=== PATIENT | female | born 1990 | race Caucasian/White ===

== ENCOUNTER 2016-12-26 20:48 | Inpatient (IN) | payer MEDICAID ==
[~2016-12-26] VITALS: Ht 160 cm; Wt 67.9 kg
[2016-12-26] MEDS ORDERED: ONDANSETRON 2MG/ML, 2ML IVPush ONE (21:00)
[2016-12-26] MEDS ORDERED: LORazepam 2 MG/ML, 1ML IVPush ONE (21:00)
[2016-12-26] MEDS ORDERED: SODIUM CHLORIDE FLUSH 10ML SYR IVF ONE (21:00)
[2016-12-26] MEDS ORDERED: SODIUM CHLORIDE 0.9% 1,000ML IVBOLUS ONE ×2 (21:00→22:30)
[2016-12-26] MEDS ORDERED: LORazepam 2 MG/ML, 1ML ONE (21:01)
[2016-12-26] MEDS ORDERED: ONDANSETRON 2MG/ML, 2ML ONE ×2 (21:02→23:20)
[2016-12-26 21:23] LABS: HEMOGLOBIN 13.1 g/dL (11.7-16.4)
[2016-12-26 21:35] LABS: ASPARTATE AMINO TRANSFERASE 7 U/L (15-37); BLOOD UREA NITROGEN 12 mg/dL (7-18)
[2016-12-26] MEDS ORDERED: OMNIPAQUE 350 MG/ML, 100ML BOTTLE ONE (22:08)
[2016-12-26] MEDS ORDERED: METRONIDAZOLE PMX 500MG/100ML 100 ML IVPB ONE (22:30)
[2016-12-26] MEDS ORDERED: CEFOTETAN PMX 1GM/50ML 50 ML IVPB ONE (22:30)
[2016-12-26] MEDS ORDERED: HYDROmorphone 1 MG/ML, 1ML IVPush PRN (22:30)
[2016-12-26] MEDS ORDERED: CEFOTETAN PMX 1GM/50ML 50 ML ONE (22:38)
[2016-12-26] MEDS ORDERED: MIDAZOLAM 1 MG/ML, 2ML ONE (23:06)
[2016-12-26] MEDS ORDERED: FENTANYL PF 250 MCG/5ML ONE ×2 (23:06→23:42)
[2016-12-26] MEDS ORDERED: VASOPRESSIN 20 UNIT/ML, 1ML ONE (23:09)
[2016-12-26] MEDS ORDERED: NOREPINEPHRINE 1 MG/ML, 4ML ONE (23:09)
[2016-12-26] MEDS ORDERED: ROCURONIUM 10 MG/ML ONE (23:20)
[2016-12-26] MEDS ORDERED: SUCCINYLCHOLINE 20 MG/ML, 10ML ONE (23:20)
[2016-12-26] MEDS ORDERED: GLYCOPYRROLATE 0.2MG/1ML ONE (23:20)
[2016-12-26] MEDS ORDERED: PROPOFOL 10 MG/ML, 20ML ONE (23:20)
[2016-12-26] MEDS ORDERED: NEOSTIGMINE 1 MG/ML, 10ML ONE (23:20)
[2016-12-27] MEDS ORDERED: BUPIVACAINE/PF 0.5% ONE (00:04)
[2016-12-27] MEDS ORDERED: ROPIvacaine/PF 0.5%, 30 ML ONE (00:09)
[2016-12-27] MEDS ORDERED: FENTANYL PF 100 MCG/2ML ONE (00:21)
[2016-12-27] MEDS ORDERED: HYDROmorphone 2 MG/ML, 1ML ONE (00:21)
[2016-12-27] MEDS ORDERED: HYDROmorphone PCA 30 MG/30 ML ONE (00:21)
[2016-12-27] MEDS: FENTANYL PF 100 MCG/2ML IV PRN ×2 (01:05→01:13)
[2016-12-27] MEDS ORDERED: HYDROmorphone 1 MG/ML, 1ML IV PRN ×2 (01:30→02:30)
[2016-12-27] MEDS ORDERED: HYDROmorphone PCA 30 MG/30 ML IV PRN (01:30)
[2016-12-27] MEDS ORDERED: ONDANSETRON 2MG/ML, 2ML IVPush PRN (01:30)
[2016-12-27] MEDS ORDERED: LABETALOL 5MG/ML, 20ML IV PRN (01:30)
[2016-12-27] MEDS ORDERED: hydrALAzine 20 MG/ML, 1ML IV PRN (01:30)
[2016-12-27 01:50] VITALS: BP 131/94
[2016-12-27 02:00] VITALS: BP 131/89
[2016-12-27] MEDS ORDERED: DIPHENHYDRAMINE 25 MG CAPSULE PO PRN (02:30)
[2016-12-27] MEDS ORDERED: ACETAMINOPHEN 650 MG SUPP PR PRN (02:30)
[2016-12-27] MEDS ORDERED: DO NOT STOP ANTIBIOTICS AFTER 24HRS MC SCH (02:30)
[2016-12-27] MEDS ORDERED: ACETAMINOPHEN 325 MG TABLET PO PRN (02:30)
[2016-12-27] MEDS ORDERED: ONDANSETRON 2MG/ML, 2ML IV PRN (02:30)
[2016-12-27] MEDS: KETOROLAC 30 MG/1 ML IV SCH ×4 (03:30→21:46)
[2016-12-27] MEDS: CEFOTETAN PMX 1GM/50ML 50 ML IVPB SCH ×2 (03:30→14:48)
[2016-12-27] MEDS: LACTATED RINGERS 1,000 ML IV SCH ×3 (03:30→21:46)
[2016-12-27] MEDS: LORazepam 2 MG/ML, 1ML IV PRN (03:47)
[2016-12-27 05:59] LABS: HEMOGLOBIN 11.4 g/dL (11.7-16.4)
[2016-12-27 06:12] LABS: BLOOD UREA NITROGEN 9 mg/dL (7-18)
[2016-12-27 07:15] VITALS: BP 116/70
[2016-12-27] MEDS: ENOXAPARIN 40 MG/0.4 ML SQ SCH (08:09)
[2016-12-27] MEDS: PANTOPRAZOLE 40 MG IV IVPush SCH (08:42)
[2016-12-27] MEDS: DIPHENHYDRAMINE 50 MG/ML, 1ML IV PRN (10:29)
[2016-12-27 12:22] VITALS: BP 114/65
[2016-12-27] MEDS: NICOTINE 21 MG/24 HR PATCH.TD24 TD SCH (15:45)
[2016-12-27 18:56] VITALS: BP 125/79
[2016-12-28] MEDS: CEFOTETAN PMX 1GM/50ML 50 ML IVPB SCH ×2 (02:31→14:31)
[2016-12-28 02:58] VITALS: BP 127/82
[2016-12-28] MEDS: KETOROLAC 30 MG/1 ML IV SCH ×4 (03:36→21:47)
[2016-12-28] MEDS: LORazepam 2 MG/ML, 1ML IV PRN ×2 (04:49→16:40)
[2016-12-28 05:21] LABS: HEMOGLOBIN 10.3 g/dL (11.7-16.4)
[2016-12-28 05:26] LABS: BLOOD UREA NITROGEN 14 mg/dL (7-18)
[2016-12-28 05:30] LABS: ASPARTATE AMINO TRANSFERASE 15 U/L (15-37)
[2016-12-28 07:07] VITALS: BP 116/70
[2016-12-28] MEDS: LACTATED RINGERS 1,000 ML IV SCH (07:37)
[2016-12-28] MEDS: PANTOPRAZOLE 40 MG IV IVPush SCH (08:15)
[2016-12-28] MEDS: ENOXAPARIN 40 MG/0.4 ML SQ SCH (08:15)
[2016-12-28] MEDS ORDERED: NS + 20MEQ KCL 1,000 ML IV SCH (09:00)
[2016-12-28 13:27] VITALS: BP 121/57
[2016-12-28] MEDS: NICOTINE 21 MG/24 HR PATCH.TD24 TD SCH (15:15)
[2016-12-28 19:38] VITALS: BP 119/77
[2016-12-28] MEDS: DIPHENHYDRAMINE 50 MG/ML, 1ML IV PRN (20:22)
[2016-12-29] MEDS ORDERED: NS + 40MEQ KCL 1,000 ML IV SCH (02:30)
[2016-12-29] MEDS: KETOROLAC 30 MG/1 ML IV SCH ×4 (02:55→22:15)
[2016-12-29] MEDS: CEFOTETAN PMX 1GM/50ML 50 ML IVPB SCH ×2 (02:55→14:30)
[2016-12-29 03:31] VITALS: BP 128/85
[2016-12-29 06:23] LABS: HEMOGLOBIN 9.8 g/dL (11.7-16.4)
[2016-12-29 06:34] LABS: BLOOD UREA NITROGEN 14 mg/dL (7-18)
[2016-12-29 08:00] VITALS: BP 111/67
[2016-12-29] MEDS ORDERED: OMNIPAQUE 350 MG/ML, 150 ML BOTTLE ONE (09:58)
[2016-12-29] MEDS: ENOXAPARIN 40 MG/0.4 ML SQ SCH (10:42)
[2016-12-29] MEDS: PANTOPRAZOLE 40 MG IV IVPush SCH (10:42)
[2016-12-29 14:00] VITALS: BP 127/78
[2016-12-29] MEDS: OXYcodone/APAP 10/325MG TABLET PO PRN ×2 (14:38→18:51)
[2016-12-29] MEDS: NICOTINE 21 MG/24 HR PATCH.TD24 TD SCH (14:50)
[2016-12-29] MEDS: LORazepam 1MG TABLET PO PRN (16:02)
[2016-12-29 19:13] VITALS: BP 120/78
[2016-12-29] MEDS: SODIUM CHLORIDE FLUSH 3ML SYRINGE IVF SCH (22:15)
[2016-12-30 02:24] VITALS: BP 122/84
[2016-12-30] MEDS: CEFOTETAN PMX 1GM/50ML 50 ML IVPB SCH (02:30)
[2016-12-30] MEDS: OXYcodone/APAP 10/325MG TABLET PO PRN ×3 (02:41→12:34)
[2016-12-30] MEDS: LORazepam 1MG TABLET PO PRN ×2 (02:41→10:48)
[2016-12-30] MEDS: ENOXAPARIN 40 MG/0.4 ML SQ SCH (08:07)
[2016-12-30] MEDS ORDERED: PANTOPROZOLE 40MG TABLET PO SCH (08:14)
[2016-12-30 08:30] VITALS: BP 127/84
[2016-12-30] MEDS: SODIUM CHLORIDE FLUSH 3ML SYRINGE IVF SCH (09:00)
[2016-12-30 11:00] VITALS: BP 116/80
[2016-12-30] MEDS ORDERED: OXYC1TAB7 PO (11:36)
[2016-12-30] MEDS ORDERED: POLY17PO5 PO (11:38)
[2016-12-30] MEDS ORDERED: PANT40TA3 PO (11:40)
[2016-12-30] MEDS ORDERED: NICO1PAT5 TD (11:41)
[2016-12-30] MEDS ORDERED: OXYC1TAB9 PO (13:03)
== END 2016-12-30 12:36 | disposition home or self-care (01) | DRG 331 ==
LOC: OR 22:29 → EDIP 22:30 → OR 22:37 → 4NOR 12-27 01:41 → DCLOUNGE 12-30 11:25
PROVIDERS: ADMIT Colon & Rectal Surgery; ATTEND Colon & Rectal Surgery
PROC: 0T9B70Z Drainage of Bladder with Drainage Device, Via Natural or Artificial Opening (ICD-10-PCS; 2016-12-26)
PROC: 0DU907Z Supplement Duodenum with Autologous Tissue Substitute, Open Approach (ICD-10-PCS; principal; 2016-12-26 22:30)
DX: K25.5 Chronic or unspecified gastric ulcer with perforation (principal); F17.200 Nicotine dependence, unspecified, uncomplicated; F41.1 Generalized anxiety disorder; Z87.19 Personal history of other diseases of the digestive system
CPT/HCPCS: 36415; 74177; 74241; 80048; 80053; 81003; 82040; 83690; 83735; 84703; 85025; 93005; 96361; 96365; 96375; C1729; J1170; J1650; J1885; J2250; J2405; J2704; J2710; J2795; J3010; J3480; J3490; Q9967; C1765; C9113; J0330; J1200; J2060; J7030; J7120; Q0163; S0074

== ENCOUNTER 2017-02-07 17:12 | Emergency (ER) | payer SELFPAY ==
[~2017-02-07] VITALS: Ht 160 cm; Wt 52.8 kg
[~2017-02-07 17:12] MED LIST: NICO1PAT5 TD; OXYC1TAB7 PO; OXYC1TAB9 PO; PANT40TA3 PO; POLY17PO5 PO
[2017-02-07] MEDS ORDERED: SODIUM CHLORIDE 0.9% 1,000ML IVBOLUS ONE (18:30)
[2017-02-07] MEDS ORDERED: SODIUM CHLORIDE FLUSH 10ML SYR IVF ONE (18:30)
[2017-02-07] MEDS ORDERED: ONDANSETRON 2MG/ML, 2ML IVPush ONE ×2 (18:30→20:00)
[2017-02-07] MEDS ORDERED: ONDANSETRON 2MG/ML, 2ML ONE (19:04)
[2017-02-07 19:20] LABS: ASPARTATE AMINO TRANSFERASE 12 U/L (15-37); BLOOD UREA NITROGEN 10 mg/dL (7-18)
[2017-02-07] MEDS ORDERED: MORPHINE SULFATE 4 MG/ML, 1ML ONE (19:44)
[2017-02-07 20:00] VITALS: BP 141/96
[2017-02-07] MEDS ORDERED: MORPHINE SULFATE 4 MG/ML, 1ML IVPush PRN (20:00)
[2017-02-07] MEDS ORDERED: OXYcodone/APAP 5/325MG TABLET ONE (20:14)
[2017-02-07] MEDS ORDERED: ONDANSETRON ODT 4 MG ONE (20:15)
[2017-02-07] MEDS ORDERED: OXYcodone/APAP 5/325MG TABLET PO ONE (20:30)
[2017-02-07] MEDS ORDERED: ONDANSETRON ODT 4 MG PO ONE (20:30)
== END 2017-02-07 21:56 | disposition home or self-care (01) ==
LOC: ED 21:53
DX: S29.012A Strain of muscle and tendon of back wall of thorax, initial encounter (principal); K80.70 Calculus of gallbladder and bile duct without cholecystitis without obstruction; X58.XXXA Exposure to other specified factors, initial encounter; Y93.89 Activity, other specified; Y99.8 Other external cause status; Y92.89 Other specified places as the place of occurrence of the external cause
CPT/HCPCS: 36415; 72072; 76700; 80053; 80307; 81001; 83690; 84703; 85025; 85730; 87086; 93005; 99285; Q0162

== ENCOUNTER 2017-10-27 04:24 | Inpatient (IN) | payer MEDICAID ==
[2017-10-27] VITALS (12 sets, daily range): BP systolic 98–112; BP diastolic 64–72
[~2017-10-27] VITALS: Ht 160 cm; Wt 46.7 kg
[~2017-10-27 04:24] MED LIST changes: +NICO-487 TD; -NICO1PAT5 TD
[2017-10-27] MEDS ORDERED: SODIUM CHLORIDE 0.9% 1,000 ML IV ONE (04:43)
[2017-10-27] MEDS ORDERED: ONDANSETRON 2MG/ML, 2ML ONE (04:58)
[2017-10-27] MEDS ORDERED: MORPHINE SULFATE 4 MG/ML, 1ML ONE ×4 (04:58→08:08)
[2017-10-27] MEDS ORDERED: FAMOTIDINE 20 MG/2 ML ONE (04:58)
[2017-10-27] MEDS ORDERED: ONDANSETRON 2MG/ML, 2ML IVPush ONE (05:00)
[2017-10-27] MEDS ORDERED: SODIUM CHLORIDE 0.9% 1,000ML IVBOLUS ONE (05:00)
[2017-10-27] MEDS ORDERED: FAMOTIDINE 20 MG/2 ML IVP ONE (05:00)
[2017-10-27] MEDS: MORPHINE SULFATE 4 MG/ML, 1ML IVPush PRN ×4 (05:08→08:23)
[2017-10-27 05:26] LABS: ALANINE AMINOTRANSFERASE 16 U/L (12-78); ALBUMIN 2.1 g/dL (3.4-5.0); ANION GAP 10 mmol/L (5-15); CALCIUM 8.1 mg/dL (8.5-10.1); CHLORIDE 104 mmol/L (98-107); CREATININE 0.56 mg/dL (0.55-1.02)
[2017-10-27 05:29] LABS: MEAN CORPUSCULAR HEMOGLOBIN 24.8 pg (27.0-34.8); MEAN CORPUSCULAR HGB CONC 32.3 g/dL (32.4-35.8); MEAN CORPUSCULAR VOLUME 76.9 fL (80-100); MEAN PLATELET VOLUME 6.5 fL (7.4-10.4); PLATELET COUNT 529 x10^3/uL (130-400); RED BLOOD COUNT 2.49 x10^6/uL (3.82-5.3); RED CELL DISTRIBUTION WIDTH 15.5 % (9.6-15.2)
[2017-10-27 05:31] LABS: ALKALINE PHOSPHATASE 72 U/L (45-117); BILIRUBIN,TOTAL < 0.1 mg/dL (0.2-1.0); TOTAL PROTEIN 6.2 g/dL (6.4-8.2)
[2017-10-27 05:54] LABS: BASOPHILS # (AUTO) 0.05 x10^3/uL (0-0.1); BASOPHILS % (AUTO) 0 % (0-1); EOSINOPHILS # (AUTO) 0.05 x10^3/uL (0-0.4); EOSINOPHILS % (AUTO) 0 % (1-7); LYMPHOCYTES # (AUTO) 1.61 x10^3/uL (1-3.4); LYMPHOCYTES % (AUTO) 12 % (22-44); MD SCAN; MONOCYTES # (AUTO) 0.83 x10^3/uL (0.2-0.8); MONOCYTES % (AUTO) 6 % (2-9); NEUTROPHILS # (AUTO) 11.06 x10^3/uL (1.8-6.8); NEUTROPHILS % (AUTO) 81 % (42-75)
[2017-10-27] MEDS ORDERED: PANTOPRAZOLE 40 MG IV IVPush ONE (06:30)
[2017-10-27] MEDS ORDERED: PANTOPRAZOLE 40 MG IV ONE (06:36)
[2017-10-27] MEDS ORDERED: OMNIPAQUE 350 MG/ML, 75ML BOTTLE ONE (06:38)
[2017-10-27] MEDS ORDERED: PIPERACILLIN/TAZO/PMX 3.375GM 50 ML IV ONE (07:00)
[2017-10-27] MEDS ORDERED: HYDROmorphone 2 MG/ML, 1ML ONE (08:08)
[2017-10-27 08:29] LABS: MICROSCOPIC INDICATED
[2017-10-27] MEDS ORDERED: LABETALOL 5MG/ML, 20ML IVPush PRN (08:30)
[2017-10-27] MEDS ORDERED: ONDANSETRON ODT 4 MG PO PRN (08:30)
[2017-10-27] MEDS ORDERED: ENALAPRILAT 1.25 MG/ML, 2ML IVPush PRN (08:30)
[2017-10-27] MEDS ORDERED: DOCUSATE 100 MG CAPSULE PO PRN (08:30)
[2017-10-27] MEDS ORDERED: BISACODYL 10 MG SUPP PR PRN (08:30)
[2017-10-27] MEDS ORDERED: THIAMINE 100 MG, MVI ADULT 10 ML, FOLIC ACID 1 MG in D5%-0.9% NACL 1,000 ML IV SCH (08:30)
[2017-10-27] MEDS ORDERED: ACETAMINOPHEN 325 MG TABLET PO PRN (08:30)
[2017-10-27] MEDS ORDERED: ONDANSETRON 2MG/ML, 2ML IVPush PRN (08:30)
[2017-10-27] MEDS ORDERED: DIPHENHYDRAMINE 25 MG CAPSULE PO PRN (08:30)
[2017-10-27] MEDS ORDERED: morphine SULFATE 10 MG/ML, 1ML IVPush PRN (08:30)
[2017-10-27 08:39] LABS: CULTURE INDICATED? YES
[2017-10-27] MEDS ORDERED: HYDROmorphone 1 MG/ML, 1ML IV ONE (09:00)
[2017-10-27] MEDS: NICOTINE 7 MG/24 HR PATCH.TD24 TD SCH (09:49)
[2017-10-27] MEDS: MVI ADULT 10 ML, FOLIC ACID 1 MG in D5%-0.9% NACL 1,000 ML IV SCH (10:42)
[2017-10-27 10:43] LABS: AMPHETAMINE SCREEN, URINE Positive (Negative); BARBITURATE SCREEN, URINE Negative (Negative); BENZODIAZEPINE SCREEN, URINE Negative (Negative); CANNABINOID SCREEN, URINE Positive (Negative); COCAINE SCREEN, URINE Negative (Negative); METHADONE SCREEN, URINE Negative (Negative); OPIATE SCREEN, URINE Positive (Negative)
[2017-10-27] MEDS: LORazepam 1MG TABLET PO PRN ×2 (13:17→21:03)
[2017-10-27] MEDS: THIAMINE 100MG TABLET PO SCH (20:34)
[2017-10-28 02:20] VITALS: BP 113/79
[2017-10-28] MEDS: LORazepam 1MG TABLET PO PRN ×2 (06:41→16:44)
[2017-10-28 06:55] LABS: ALBUMIN 1.7 g/dL (3.4-5.0); ANION GAP 9 mmol/L (5-15); CALCIUM 7.5 mg/dL (8.5-10.1); CHLORIDE 109 mmol/L (98-107)
[2017-10-28 07:06] LABS: ALANINE AMINOTRANSFERASE 15 U/L (12-78); ALKALINE PHOSPHATASE 70 U/L (45-117); BILIRUBIN,TOTAL 0.2 mg/dL (0.2-1.0); CREATININE 0.53 mg/dL (0.55-1.02); THYROID STIMULATING HORMONE 0.587 mIU/L (0.358-3.740); TOTAL PROTEIN 5.3 g/dL (6.4-8.2)
[2017-10-28 07:18] VITALS: BP 123/82
[2017-10-28 07:28] LABS: BASOPHILS # (AUTO) 0.06 x10^3/uL (0-0.1); BASOPHILS % (AUTO) 1 % (0-1); EOSINOPHILS # (AUTO) 0.21 x10^3/uL (0-0.4); EOSINOPHILS % (AUTO) 2 % (1-7); LYMPHOCYTES # (AUTO) 3.18 x10^3/uL (1-3.4); LYMPHOCYTES % (AUTO) 32 % (22-44); MD MORPH REVIEW ONLY; MEAN CORPUSCULAR HEMOGLOBIN 26.1 pg (27.0-34.8); MEAN CORPUSCULAR HGB CONC 32.4 g/dL (32.4-35.8); MEAN CORPUSCULAR VOLUME 80.6 fL (80-100); MEAN PLATELET VOLUME 6.2 fL (7.4-10.4); MONOCYTES # (AUTO) 0.73 x10^3/uL (0.2-0.8); MONOCYTES % (AUTO) 7 % (2-9); NEUTROPHILS # (AUTO) 5.81 x10^3/uL (1.8-6.8); NEUTROPHILS % (AUTO) 58 % (42-75); PLATELET COUNT 536 x10^3/uL (130-400); RED BLOOD COUNT 3.08 x10^6/uL (3.82-5.3); RED CELL DISTRIBUTION WIDTH 16.5 % (9.6-15.2)
[2017-10-28 07:43] LABS: ANISOCYTOSIS 1+
[2017-10-28 07:45] LABS: <PLATELET ESTIMATE> INCREASED; HYPOCHROMIA 1+; OVALOCYTES 1+; POLYCHROMASIA 1+
[2017-10-28 07:46] LABS: LARGE PLATELETS 1+
[2017-10-28] MEDS: NICOTINE 7 MG/24 HR PATCH.TD24 TD SCH (08:58)
[2017-10-28] MEDS: THIAMINE 100MG TABLET PO SCH (08:59)
[2017-10-28] MEDS: MVI ADULT 10 ML, FOLIC ACID 1 MG in D5%-0.9% NACL 1,000 ML IV SCH (12:35)
[2017-10-28 13:35] VITALS: BP 125/89
[2017-10-28] MEDS: PANTOPRAZOLE 40 MG IV IVPush SCH (16:44)
[2017-10-28] MEDS: MORPHINE SULFATE 4 MG/ML, 1ML IVPush PRN ×2 (16:44→21:04)
[2017-10-28 19:04] VITALS: BP 115/80
[2017-10-29] MEDS: MORPHINE SULFATE 4 MG/ML, 1ML IVPush PRN ×4 (01:25→14:28)
[2017-10-29 02:24] VITALS: BP 125/81
[2017-10-29] MEDS: PANTOPRAZOLE 40 MG IV IVPush SCH ×2 (02:50→15:56)
[2017-10-29 07:31] VITALS: BP 116/78
[2017-10-29 07:33] VITALS: BP 106/70
[2017-10-29 07:34] VITALS: BP 110/72
[2017-10-29] MEDS: LORazepam 1MG TABLET PO PRN ×2 (07:46→15:59)
[2017-10-29] MEDS: NICOTINE 7 MG/24 HR PATCH.TD24 TD SCH (10:17)
[2017-10-29] MEDS: THIAMINE 100MG TABLET PO SCH (10:17)
[2017-10-29 10:34] LABS: MEAN CORPUSCULAR HGB CONC 32.4 g/dL (32.4-35.8); MEAN CORPUSCULAR VOLUME 80.1 fL (80-100); RED BLOOD COUNT 3.01 x10^6/uL (3.82-5.3); RED CELL DISTRIBUTION WIDTH 16.3 % (9.6-15.2)
[2017-10-29 10:39] LABS: ANION GAP 6 mmol/L (5-15); CALCIUM 8.2 mg/dL (8.5-10.1); CHLORIDE 109 mmol/L (98-107); CREATININE 0.61 mg/dL (0.55-1.02)
[2017-10-29 11:00] LABS: BASOPHILS # (AUTO) 0.04 x10^3/uL (0-0.1); BASOPHILS % (AUTO) 1 % (0-1); EOSINOPHILS # (AUTO) 0.31 x10^3/uL (0-0.4); EOSINOPHILS % (AUTO) 4 % (1-7); LYMPHOCYTES # (AUTO) 1.72 x10^3/uL (1-3.4); LYMPHOCYTES % (AUTO) 23 % (22-44); MD SCAN; MONOCYTES # (AUTO) 0.41 x10^3/uL (0.2-0.8); MONOCYTES % (AUTO) 5 % (2-9); NEUTROPHILS # (AUTO) 5.16 x10^3/uL (1.8-6.8); NEUTROPHILS % (AUTO) 68 % (42-75); PLATELET COUNT 645 x10^3/uL (130-400)
[2017-10-29 12:07] VITALS: BP 126/81
[2017-10-29] MEDS ORDERED: PROPOFOL 10 MG/ML, 50ML ONE (12:45)
[2017-10-29] MEDS ORDERED: DIAZEPAM 5 MG/ML, 2ML IVPush PRN (13:30)
[2017-10-29] MEDS ORDERED: ACETAMINOPHEN 325 MG TABLET PO PRN (13:30)
[2017-10-29] MEDS ORDERED: ALBUTEROL/IPRATROPIUM 2.5MG/0.5MG, 3 ML NPPB PRN (13:30)
[2017-10-29] MEDS ORDERED: hydrALAzine 20 MG/ML, 1ML IV PRN (13:30)
[2017-10-29] MEDS ORDERED: OXYcodone 5 MG/5 ML ORAL.SOL UDC PO PRN (13:30)
[2017-10-29] MEDS ORDERED: ONDANSETRON 2MG/ML, 2ML IVPush PRN (13:30)
[2017-10-29] MEDS ORDERED: MEPERIDINE/PF 25MG/0.5ML IVPush PRN (13:30)
[2017-10-29] MEDS ORDERED: FENTANYL PF 100 MCG/2ML IV PRN (13:30)
[2017-10-29] MEDS ORDERED: HYDROmorphone 1 MG/ML, 1ML IV PRN (13:30)
[2017-10-29] MEDS ORDERED: PROMETHAZINE 25 MG/ML, 1ML IV PRN (13:30)
[2017-10-29] MEDS ORDERED: LORazepam 2 MG/ML, 1ML IVPush PRN (13:30)
[2017-10-29] MEDS ORDERED: LABETALOL 5MG/ML, 20ML IV PRN (13:30)
[2017-10-29] MEDS ORDERED: MIDAZOLAM 1 MG/ML, 5ML IV PRN (13:30)
[2017-10-29] MEDS: MVI ADULT 10 ML, FOLIC ACID 1 MG in D5%-0.9% NACL 1,000 ML IV SCH (14:28)
[2017-10-29] MEDS ORDERED: METR500T8 PO (15:12)
[2017-10-29] MEDS ORDERED: OMEP40CA6 PO (15:12)
[2017-10-29] MEDS ORDERED: SUCR1TAB33 PO (15:12)
[2017-10-29] MEDS ORDERED: NICO-485 TD (15:12)
== END 2017-10-29 16:30 | disposition home or self-care (01) | DRG 391 ==
LOC: ED 07:00 → EDIP 07:06 → 3NW 08:30
PROVIDERS: ADMIT Internal Medicine; ATTEND Internal Medicine
PROC: 0DB58ZX Excision of Esophagus, Via Natural or Artificial Opening Endoscopic, Diagnostic (ICD-10-PCS; principal; 2017-10-27)
PROC: 0DB78ZX Excision of Stomach, Pylorus, Via Natural or Artificial Opening Endoscopic, Diagnostic (ICD-10-PCS; 2017-10-27)
PROC: 0DB68ZX Excision of Stomach, Via Natural or Artificial Opening Endoscopic, Diagnostic (ICD-10-PCS; 2017-10-27)
PROC: 30233N1 Transfusion of Nonautologous Red Blood Cells into Peripheral Vein, Percutaneous Approach (ICD-10-PCS; 2017-10-27)
DX: K29.70 Gastritis, unspecified, without bleeding (principal); K25.6 Chronic or unspecified gastric ulcer with both hemorrhage and perforation; E44.0 Moderate protein-calorie malnutrition; R64 Cachexia; Z68.1 Body mass index [BMI] 19.9 or less, adult; D64.9 Anemia, unspecified; E86.0 Dehydration; F12.90 Cannabis use, unspecified, uncomplicated; F15.90 Other stimulant use, unspecified, uncomplicated; F17.210 Nicotine dependence, cigarettes, uncomplicated; F32.9 Major depressive disorder, single episode, unspecified; F41.1 Generalized anxiety disorder; K80.20 Calculus of gallbladder without cholecystitis without obstruction; N76.0 Acute vaginitis; Y90.0 Blood alcohol level of less than 20 mg/100 ml; Z86.59 Personal history of other mental and behavioral disorders; Z87.11 Personal history of peptic ulcer disease; Z87.19 Personal history of other diseases of the digestive system; Z91.19 Patient's noncompliance with other medical treatment and regimen
CPT/HCPCS: 36415; 74021; 74177; 74241; 76700; 80048; 80053; 80307; 81001; 83690; 83735; 84100; 84443; 84703; 85014; 85018; 85025; 86850; 86900; 86923; 87086; 88305; J1170; J2405; J2704; J7042; Q9967; C9113; J2270; J7030; P9016; Q0163; S0028

== ENCOUNTER 2017-10-30 23:48 | Emergency (ER) | payer MEDICAID ==
[~2017-10-30] VITALS: Ht 154.9 cm; Wt 48.0 kg
[~2017-10-30 23:48] MED LIST changes: +METR500T8 PO; +NICO-485 TD; +OMEP40CA6 PO; +SUCR1TAB33 PO
[2017-10-31 00:33] VITALS: BP 132/96
== END 2017-10-31 01:15 | disposition home or self-care (01) ==
LOC: ED 23:59
DX: F32.3 Major depressive disorder, single episode, severe with psychotic features (principal); F17.200 Nicotine dependence, unspecified, uncomplicated; F15.10 Other stimulant abuse, uncomplicated; F12.10 Cannabis abuse, uncomplicated; F11.10 Opioid abuse, uncomplicated; Z72.9 Problem related to lifestyle, unspecified; Z75.9 Unspecified problem related to medical facilities and other health care; Z63.8 Other specified problems related to primary support group
CPT/HCPCS: 99284